=== PATIENT | male | born 1935 | race Caucasian/White ===

== ENCOUNTER → 2016-12-28 | Outpatient (CLI) | payer MEDICARE ==
[2016-12-28 20:29] LABS: HEMOGLOBIN 11.5 gm/dl (14.0-17.5); RED BLOOD COUNT 3.82 M/UL (4.20-5.50); WHITE BLOOD COUNT 9.4 K/UL (4.5-11.0)
== END ==
LOC: RAD 19:32
PROVIDERS: Registered Nurse
DX: R09.89 Other specified symptoms and signs involving the circulatory and respiratory systems (principal); R06.02 Shortness of breath
CPT/HCPCS: 36415; 71020; 80053; 85025; 87205

== ENCOUNTER 2020-12-31 18:34 | Emergency (ER) | payer MEDICARE ==
[2020-12-31 19:38] LABS: BUN/CREATININE RATIO 18 (0-10)
[2020-12-31 19:46] LABS: HEMOGLOBIN 9.6 gm/dl (14.0-17.5); RED BLOOD COUNT 3.45 M/UL (4.20-5.50); WHITE BLOOD COUNT 6.8 K/UL (4.5-11.0)
== END 2021-01-01 00:25 | disposition short-term general hospital (02) ==
LOC: ER1 18:34
PROVIDERS: Emergency Medicine
DX: I95.9 Hypotension, unspecified (principal); I10 Essential (primary) hypertension; J44.9 Chronic obstructive pulmonary disease, unspecified; E86.0 Dehydration; I35.0 Nonrheumatic aortic (valve) stenosis; Z88.0 Allergy status to penicillin; Z20.822 Contact with and (suspected) exposure to COVID-19
CPT/HCPCS: 0240U; 70450; 71045; 80053; 81001; 82550; 82553; 82962; 83605; 83690; 83735; 83874; 83880; 84439; 84443; 84484; 85025; 85610; 85730; 87040; 93005; 99285

== ENCOUNTER 2021-02-17 16:04 | Inpatient (IN) | payer MEDICARE ==
[~2021-02-17] VITALS: Ht 167.6 cm; Wt 72.6 kg
[2021-02-17 17:28] LABS: HEMOGLOBIN 8.8 gm/dl (14.0-17.5); RED BLOOD COUNT 3.26 M/UL (4.20-5.50); WHITE BLOOD COUNT 7.3 K/UL (4.5-11.0)
[2021-02-17 17:48] LABS: BUN/CREATININE RATIO 15 (0-10)
[2021-02-17] MEDS ORDERED: ELIQUIS2.5 MG PO (21:40)
[2021-02-17] MEDS ORDERED: LASIX40 MG PO (21:41)
[2021-02-17] MEDS ORDERED: ARTIFICIAL TEAR15 M6 OP (21:41)
[2021-02-17] MEDS ORDERED: PLAVIX75 MG PO (21:42)
[2021-02-17] MEDS ORDERED: LEVOTHYROXINE50 MC1 PO (21:42)
[2021-02-17] MEDS ORDERED: GABAPENTIN600 MG PO (21:42)
[2021-02-17] MEDS ORDERED: PROTONIX40 MG PO (21:43)
[2021-02-17] MEDS ORDERED: AMLODIPINE BESYL5 MG PO (21:43)
[2021-02-17] MEDS ORDERED: DOXAZOSIN MESYLA8 MG PO (21:44)
[2021-02-17] MEDS ORDERED: CRESTOR40 MG PO (21:44)
[2021-02-18 05:15] LABS: HEMOGLOBIN 8.5 gm/dl (14.0-17.5); RED BLOOD COUNT 3.16 M/UL (4.20-5.50); WHITE BLOOD COUNT 6.9 K/UL (4.5-11.0)
[2021-02-19 04:24] LABS: HEMOGLOBIN 8.8 gm/dl (14.0-17.5); RED BLOOD COUNT 3.27 M/UL (4.20-5.50); WHITE BLOOD COUNT 7.6 K/UL (4.5-11.0)
[2021-02-19] MEDS ORDERED: LOPRESSOR 25 MG25 MG PO (12:20)
[2021-02-19] MEDS ORDERED: GABAPENTIN600 MG PO (12:20)
[2021-02-19] MEDS ORDERED: LASIX40 MG PO (12:20)
[2021-02-19] MEDS ORDERED: B-1100 MG PO (12:24)
[2021-02-19] MEDS ORDERED: FOLIC ACID1 MG PO (12:24)
[2021-02-19] MEDS ORDERED: FERROCITE324 MG PO (12:24)
== END 2021-02-19 14:41 | disposition home or self-care (01) | DRG 917 ==
LOC: ER1 16:04 → CDU 19:13 → M/S 20:54
PROVIDERS: Physician Assistant; ADMIT Internal Medicine
DX: T46.1X1A Poisoning by calcium-channel blockers, accidental (unintentional), initial encounter (principal); G93.41 Metabolic encephalopathy; N17.9 Acute kidney failure, unspecified; Z20.822 Contact with and (suspected) exposure to COVID-19; T38.1X1A Poisoning by thyroid hormones and substitutes, accidental (unintentional), initial encounter; T44.7X1A Poisoning by beta-adrenoreceptor antagonists, accidental (unintentional), initial encounter; T46.4X1A Poisoning by angiotensin-converting-enzyme inhibitors, accidental (unintentional), initial encounter; T43.221A Poisoning by selective serotonin reuptake inhibitors, accidental (unintentional), initial encounter; E78.5 Hyperlipidemia, unspecified; D63.1 Anemia in chronic kidney disease; I12.9 Hypertensive chronic kidney disease with stage 1 through stage 4 chronic kidney disease, or unspecified chronic kidney disease; F03.90 Unspecified dementia, unspecified severity, without behavioral disturbance, psychotic disturbance, mood disturbance, and anxiety; E11.22 Type 2 diabetes mellitus with diabetic chronic kidney disease; R79.89 Other specified abnormal findings of blood chemistry; I95.89 Other hypotension; L89.312 Pressure ulcer of right buttock, stage 2; N18.30 Chronic kidney disease, stage 3 unspecified; I25.10 Atherosclerotic heart disease of native coronary artery without angina pectoris; Z79.4 Long term (current) use of insulin; Y92.9 Unspecified place or not applicable; Z79.01 Long term (current) use of anticoagulants; Z95.2 Presence of prosthetic heart valve; Z95.5 Presence of coronary angioplasty implant and graft
CPT/HCPCS: 36415; 70450; 71045; 80048; 80053; 82272; 82550; 82553; 82728; 83540; 83550; 83874; 84439; 84443; 84484; 84550; 85025; 85610; 85730; 93005; 99285; C9113; J7030; U0002

== ENCOUNTER → 2021-04-05 | Outpatient (CLI) | payer MEDICARE ==
[~2021-04-05] MED LIST: AMLODIPINE BESYL5 MG PO; ARTIFICIAL TEAR15 M6 OP; B-1100 MG PO; CRESTOR40 MG PO; DOXAZOSIN MESYLA8 MG PO; ELIQUIS2.5 MG PO; FERROCITE324 MG PO; FOLIC ACID1 MG PO; GABAPENTIN600 MG PO; LASIX40 MG PO; LEVOTHYROXINE50 MC1 PO; LOPRESSOR 25 MG25 MG PO; PLAVIX75 MG PO; PROTONIX40 MG PO
== END ==
LOC: KOH-I 04-04 15:30
DX: R41.3 Other amnesia (principal); R41.0 Disorientation, unspecified; G31.9 Degenerative disease of nervous system, unspecified; R90.89 Other abnormal findings on diagnostic imaging of central nervous system
CPT/HCPCS: 70450

== ENCOUNTER 2021-05-07 09:50 | Emergency (ER) | payer MEDICARE ==
[2021-05-07 11:24] LABS: HEMOGLOBIN 10.8 gm/dl (14.0-17.5); RED BLOOD COUNT 3.84 M/UL (4.20-5.50); WHITE BLOOD COUNT 10.4 K/UL (4.5-11.0)
== END 2021-05-07 16:30 | disposition home or self-care (01) ==
LOC: ER1 09:50
PROVIDERS: Emergency Medicine
DX: T68.XXXA Hypothermia, initial encounter (principal); S41.111A Laceration without foreign body of right upper arm, initial encounter; E11.9 Type 2 diabetes mellitus without complications; F03.90 Unspecified dementia, unspecified severity, without behavioral disturbance, psychotic disturbance, mood disturbance, and anxiety; W19.XXXA Unspecified fall, initial encounter; Y92.009 Unspecified place in unspecified non-institutional (private) residence as the place of occurrence of the external cause; Z20.822 Contact with and (suspected) exposure to COVID-19
CPT/HCPCS: 70450; 71045; 72125; 72128; 72131; 73060; 73090; 80053; 81001; 82962; 83605; 83735; 84100; 85025; 87040; 87086; 93005; 99284; Q9965; U0002

== ENCOUNTER 2021-09-09 13:40 | Emergency (ER) | payer MEDICARE ==
[2021-09-09 14:05] LABS: HEMOGLOBIN 10.1 gm/dl (14.0-17.5); RED BLOOD COUNT 3.55 M/UL (4.20-5.50)
[2021-09-09 14:51] LABS: BUN/CREATININE RATIO 16 (0-10)
== END 2021-09-09 18:35 | disposition home or self-care (01) ==
LOC: ER1 13:40
PROVIDERS: Student in an Organized Health Care Education/Training Program
DX: R53.1 Weakness (principal); E86.0 Dehydration; E11.9 Type 2 diabetes mellitus without complications; Z20.822 Contact with and (suspected) exposure to COVID-19
CPT/HCPCS: 0240U; 70450; 71045; 80053; 81001; 82550; 82553; 83735; 83874; 84484; 85025; 93005; 99285; J7040